=== PATIENT | female | born 1990 | race Two or more races ===

== ENCOUNTER 2023-01-13 19:48 | Emergency (ER) | payer MEDICAID ==
[~2023-01-13] VITALS: Ht 162.6 cm; Wt 65.8 kg
--- NOTE | 2023-01-13 21:08 | NUR ---
PT AAOX4, ABLE TO MAKE NEEDS KNOWN. FILI W/ C/O R FLANK PAIN RADIATING TO RLQ X8 DAYS, +N/+V/-D, CHILLS SINCE MONDAY, FEVER HIGH 104F YESTERDAY (102F TODAY). STATES SHE HAS "LOTS OF BURPING." TESTED HERSELF FOR AT HOME, NEGATIVE. SEEN IN [facility] ON MONDAY, DC'D HOME AND RX'D CIPRO, HAS TAKEN 2 DOSES ALREADY. PLACED COMFORTABLY IN BED, VITALS CHECKED.
--- NOTE | 2023-01-13 21:15 | NUR ---
COMMERCIAL ROOFING ESTIMATOR AT BEDSIDE
[2023-01-13] MEDS ORDERED: KETOROLAC TROMETHAMINE INJ 30 MG/ML VIAL IV ONE (21:30)
[2023-01-13] MEDS ORDERED: IV NS 0.9% 1,000 ML BAG IV ONE (21:30)
--- NOTE | 2023-01-13 21:45 | NUR ---
20GA RAC INSERTED. BLOOD WORK COLLECTED AND SENT TO LAB.
[2023-01-13] MEDS ORDERED: KETOROLAC TROMETHAMINE 15 MG/ML VIAL ONE (22:03)
[2023-01-13 22:06] LABS: BASOPHILS % (AUTO) 0.3 % (0.0-2.0); EOSINOPHILS % (AUTO) 0.2 % (0.0-6.0); HEMATOCRIT 35 % (33-45); HEMOGLOBIN 11.5 g/dL (11.5-14.8); LYMPHOCYTES # (AUTO) 0.9 K/uL (0.8-4.8); LYMPHOCYTES % (AUTO) 10.7 % (20.0-44.0); MEAN CORPUSCULAR HGB CONC 33 g/dl (31.0-36.0); MEAN CORPUSCULAR VOLUME 86 fL (82-100); MONOCYTES # (AUTO) 1.1 K/uL (0.1-1.30); NEUTROPHILS # (AUTO) 6.6 K/uL (1.8-8.9); NEUTROPHILS % (AUTO) 75.8 % (43.0-81.0); PLATELET COUNT (AUTO) 222 K/uL (150-450); RED BLOOD CELL COUNT(AUTO) 4.09 MIL/uL (4.0-5.2); WHITE BLOOD COUNT (AUTO) 8.7 K/uL (4.3-11.0)
--- NOTE | 2023-01-13 22:13 | NUR ---
STATES SHE WAS GIVEN TORADOL AT [facility] ON MONDAY, DID NOT HELP. 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
[2023-01-13 22:25] LABS: BILIRUBIN,URINE NEGATIVE (NEGATIVE); COLOR,URINE YELLOW (YELLOW); LEUKOCYTE ESTERASE ,URINE NEGATIVE (NEGATIVE); NITRITE, URINE NEGATIVE (NEGATIVE); PROTEIN,URINE NEGATIVE (NEGATIVE); UGLUCOSE NEGATIVE (NEGATIVE); UROBILINOGEN,URINE 0.2 EU/dL (0.2)
[2023-01-13 22:28] LABS: BACTERIA,URINE None seen /HPF (None Seen); WBC,URINE 0-2 /HPF (0-3)
[2023-01-13] MEDS ORDERED: ONDANSETRON HCL/PF 4 MG/2 ML VIAL IVP ONE (22:30)
[2023-01-13] MEDS ORDERED: MORPHINE SULFATE INJ 2 MG/ML DISP.SYRIN IV ONE (22:30)
--- NOTE | 2023-01-13 22:33 | NUR ---
WAIVER SIGNED BY PT. ELECTRICAL DESIGN TECHNOLOGIST MADE AWARE
[2023-01-13 22:34] LABS: ALBUMIN 2.8 g/dL (3.4-5.0); BILIRUBIN,DIRECT 0.2 mg/dL (0.0-0.2); BILIRUBIN,TOTAL 0.4 mg/dL (0.2-1.0); CALCIUM, SERUM 8.6 mg/dL (8.5-10.1); CREATININE 0.8 mg/dL (0.6-1.3); POTASSIUM 3.2 mmol/L (3.5-5.1); TOTAL PROTEIN, SERUM 6.7 g/dL (6.4-8.2)
[2023-01-13] MEDS ORDERED: MORPHINE SULFATE INJ 4 MG/ML DISP.SYRIN ONE (22:43)
[2023-01-13] MEDS ORDERED: ONDANSETRON HCL/PF 4 MG/2 ML VIAL ONE (22:44)
--- NOTE | 2023-01-13 23:06 | NUR ---
BROUGHT TO CT DEPT
--- NOTE | 2023-01-13 23:06 | NUR ---
PELVIC EXAM DONE BY JUDAH SPANN. ASSISTED BY NKECHI CREWS. SPECIMEN FOR WET MOUNT SENT TO LAB
--- NOTE | 2023-01-13 23:23 | NUR ---
CAME BACK FROM CT SCAN, NEEDS ATTENDED
[2023-01-14] MEDS ORDERED: DOXYCYCLINE HYCLATE (100 MG) 100 MG TABLET PO ONE
[2023-01-14] MEDS ORDERED: CEFTRIAXONE 500 MG VIAL IM ONE
[2023-01-14] MEDS ORDERED: HYDR-4303 PO (00:09)
[2023-01-14] MEDS ORDERED: NAPR500T6 PO (00:09)
[2023-01-14] MEDS ORDERED: DOXY-326 PO (00:09)
[2023-01-14] MEDS ORDERED: ONDA4TAB5 PO (00:09)
[2023-01-14] MEDS ORDERED: METR500T PO (00:09)
[2023-01-14] MEDS ORDERED: CEFTRIAXONE 500 MG VIAL ONE (00:13)
[2023-01-14] MEDS ORDERED: POTASSIUM CHLORIDE 20 MEQ TAB.PRT.SR PO ONE ×2 (00:14)
[2023-01-14] MEDS ORDERED: DOXYCYCLINE HYCLATE (100 MG) 100 MG TABLET ONE (00:14)
[2023-01-14] MEDS ORDERED: LIDOCAINE 1% INJ 50 ML MDV IJ ONE (00:15)
[2023-01-14] MEDS ORDERED: KETOROLAC TROMETHAMINE INJ 30 MG/ML VIAL IV ONE (00:30)
[2023-01-14] MEDS ORDERED: KETOROLAC TROMETHAMINE INJ 30 MG/ML VIAL ONE (00:39)
--- NOTE | 2023-01-14 00:55 | NUR ---
Patient discharged to home in stable condition. Written and verbal after care instructions given. Patient verbalizes understanding of instruction. IV removed. Catheter intact and site benign. Pressure and 4x4 applied to site. No bleeding noted.
[2023-01-14 00:58] VITALS: BP 110/61
== END 2023-01-14 00:58 | disposition home or self-care (01) ==
LOC: ER 19:55
DX: N73.9 Female pelvic inflammatory disease, unspecified (principal); N83.201 Unspecified ovarian cyst, right side; R11.2 Nausea with vomiting, unspecified; Z79.899 Other long term (current) drug therapy
CPT/HCPCS: 99285; 74176; 96374; 76856; 96361; 96375 ×2; 85025; 80048; 87086; 83690; 80076; 81001; 36415; 87210; 87491; 87591; 96372; J2270; J2405; J7030; A4223; J3490; J0696; J1885